=== PATIENT | male | born 1965 | race Caucasian/White ===

== ENCOUNTER 2017-11-17 19:16 | Inpatient (IN) | payer OTHER, SELFPAY ==
[~2017-11-17 19:16] MED LIST: ISOVUE-370 76%-LOCM 1 ML ONE
[2017-11-17] MEDS ORDERED: Fentanyl 100 MCG/2 ML VIAL ONE (19:28)
[2017-11-17 19:38] LABS: Hemoglobin 16.8 g/dL (14.0-18.0); Mean Corpuscular HGB CONC 33.8 g/dL (32.0-36.0); Mean Corpuscular Hemoglobin 29.5 pg (27.0-31.0); Mean Corpuscular Volume 87.4 fL (78.0-98.0); Mean Platelet Volume 7.3 fL (7.4-10.4); Platelet Count 357 thou/uL (130-400); RBC Distribution Width 12.5 % (11.5-14.5); Red Blood Cell (RBC) Count 5.69 mill/uL (4.70-6.10); White Blood Cell (WBC) Count 23.1 thou/uL (4.8-10.8)
[2017-11-17 19:56] LABS: Band 7 % (5-11); Eosinophils 1 % (0-10); Lymphocytes 16 % (21-51); MDiff Complete? YES; Monocytes 8 % (0-10); Neutrophil 68 % (42-75); PLT Morphology Comment Appears Adequate; RBC Morphology Normal
[2017-11-17] MEDS ORDERED: Adacel (T-DAP) 0.5 ML VIAL ONE (19:57)
[2017-11-17 20:02] LABS: ALT (SGPT) 32 U/L (8-55); AST (SGOT) 27 U/L (5-34); Albumin 4.2 g/dL (3.5-5.0); Alcohol Less than 10 mg/dL (Less than 10); Alkaline Phosphatase 104 U/L (40-150); Anion Gap 12 mmol/L (10-20); BUN (Urea Nitrogen) 12 mg/dL (8.4-25.7); Bilirubin, Total 0.5 mg/dL (0.2-1.2); Calc. Creatinine Clearance 0 mL/min (70-130); Calcium 9.1 mg/dL (7.8-10.44); Carbon Dioxide 24 mmol/L (22-29); Chloride 104 mmol/L (98-107); Estimated GFR-MDRD 86; Globulin 3.4 g/dL (2.4-3.5); Glucose 115 mg/dL (70-105); Potassium 3.9 mmol/L (3.5-5.1); Protein, Total 7.6 g/dL (6.0-8.3); Sodium 136 mmol/L (136-145)
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
[2017-11-17] MEDS ORDERED: Lidocaine 1% (PF) 30 ML VIAL ONE (20:34)
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
[2017-11-17] MEDS ORDERED: Ondansetron HCl/PF 4 MG/2 ML Vial IVP PRN (22:16)
[2017-11-17] MEDS ORDERED: Dextrose 50% Abboject 50 ML SYRINGE SLOW IVP PRN (22:16)
[2017-11-17] MEDS ORDERED: Ketorolac Tromethamine 30 MG/ML VIAL IVP SCH (22:16)
[2017-11-17] MEDS ORDERED: Dextrose 5% in Water 1,000 ML IV PRN (22:16)
[2017-11-17] MEDS ORDERED: Ondansetron ODT 4 MG TAB PO PRN (22:16)
[2017-11-17] MEDS ORDERED: Rib Fracture Protocol PO SCH (22:16)
[2017-11-17] MEDS ORDERED: Promethazine HCl 25 MG/ML VIAL IM PRN ×2 (22:16)
[2017-11-17] MEDS ORDERED: hydrALAZINE 20 MG/ML VIAL SLOW IVP PRN (22:16)
[2017-11-17] MEDS ORDERED: Cyclobenzaprine 10 MG TAB PO PRN (22:32)
[2017-11-17 23:28] VITALS: BMI 27.6
[2017-11-17] MEDS ORDERED: Acetaminophen 1,000 MG in Premix Bag 1 BAG IVPB SCH (23:59)
[2017-11-18] MEDS: traMADol HCl 50 MG TAB PO SCH ×3 (00:02→11:53)
[2017-11-18 05:06] LABS: #Eosinphils 0.1 thou/uL (0.0-0.7); #Lymphocytes 1.9 thou/uL (1.20-3.40); #Monocytes 1.2 thou/uL (0.11-0.59); #Neutrophils 10.1 thou/uL (1.40-6.50); %Basophils 0.2 % (0.0-1.0); %Eosinophils 0.6 % (0.0-10.0); %Lymphocytes 14.2 % (21.0-51.0); %Monocytes 8.8 % (0.0-10.0); %Neutrophils 76.2 % (42.0-75.0); Hemoglobin 15.2 g/dL (14.0-18.0); Mean Corpuscular Volume 88.1 fL (78.0-98.0); Mean Platelet Volume 7.5 fL (7.4-10.4); Platelet Count 305 thou/uL (130-400); RBC Distribution Width 12.4 % (11.5-14.5); Red Blood Cell (RBC) Count 5.06 mill/uL (4.70-6.10); White Blood Cell (WBC) Count 13.3 thou/uL (4.8-10.8)
[2017-11-18 05:17] LABS: Anion Gap 12 mmol/L (10-20); BUN (Urea Nitrogen) 14 mg/dL (8.4-25.7); Calc. Creatinine Clearance 105 mL/min (70-130); Calcium 9.5 mg/dL (7.8-10.44); Carbon Dioxide 25 mmol/L (22-29); Chloride 104 mmol/L (98-107); Estimated GFR-MDRD 76; Glucose 119 mg/dL (70-105); Potassium 4.3 mmol/L (3.5-5.1); Sodium 137 mmol/L (136-145)
[2017-11-18] MEDS: Ibuprofen 800 MG TAB PO SCH ×2 (05:43→11:53)
[2017-11-18] MEDS: Acetaminophen 500 MG TAB PO SCH ×2 (05:43→11:53)
[2017-11-18] MEDS ORDERED: Famotidine 20 MG TAB PO SCH (09:00)
[2017-11-18] MEDS ORDERED: Bacitracin Zinc Ointment 30 gm TUBE TOP SCH (09:00)
[2017-11-18] MEDS ORDERED: Gabapentin 300 MG CAP PO SCH (09:00)
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
[2017-11-18 11:59] VITALS: BP 139/74; TEMP 98.2
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
[2017-11-19] MEDS ORDERED: Prevnar 13-Val Conj/PF 0.5 ML SYRINGE IM ONE (09:00)
== END 2017-11-18 15:43 | disposition home or self-care (01) | DRG 184 ==
LOC: ERS 19:16 → SURG B 22:06
PROVIDERS: ADMIT Surgery; ATTEND Surgery
PROC: 0HQ1XZZ Repair Face Skin, External Approach (ICD-10-PCS; principal; 2017-11-17)
DX: S22.42XA Multiple fractures of ribs, left side, initial encounter for closed fracture (principal); S06.0X9A Concussion with loss of consciousness of unspecified duration, initial encounter; S27.321A Contusion of lung, unilateral, initial encounter; S42.112A Displaced fracture of body of scapula, left shoulder, initial encounter for closed fracture; S42.002A Fracture of unspecified part of left clavicle, initial encounter for closed fracture; G89.11 Acute pain due to trauma; N40.0 Benign prostatic hyperplasia without lower urinary tract symptoms; K21.9 Gastro-esophageal reflux disease without esophagitis; F17.210 Nicotine dependence, cigarettes, uncomplicated; M19.90 Unspecified osteoarthritis, unspecified site; S41.012A Laceration without foreign body of left shoulder, initial encounter; S01.81XA Laceration without foreign body of other part of head, initial encounter; Z88.0 Allergy status to penicillin; V68.5XXA Driver of heavy transport vehicle injured in noncollision transport accident in traffic accident, initial encounter
CPT/HCPCS: 12013; 36415; 70450; 71045; 71260; 72125; 72170; 74177; 80048; 80053; 80307; 85025; 86850; 86900; 86901; 90471; 90715; 93005; 94640; 96374; 99292; G0390; G8978-GP-CJ; G8979-GP-CJ; G8980-GP-CJ; J0131; J1885; J2001; J3010; J7620